=== PATIENT | female | born 1960 | race African-American/Black ===

== ENCOUNTER → 2017-07-21 | Outpatient (CLI) | payer OTHER ==
[2014-04-06 14:41] VITALS: BP 177/80
--- NOTE | 2017-07-21 16:02 | CARD ---
APPROVED REPORT EXAM: Two-dimensional and M-mode echocardiogram with Doppler and color Doppler. Other Information HR: 64bpm INDICATION Cardiomyopathy RISK FACTORS Hypertension 2D DIMENSIONS RVDd2.9 (2.9-3.5cm)Left Atrium(2D)4.0 (1.6-4.0cm) IVSd1.4 (0.7-1.1cm)Aortic Root(2D)2.7 (2.0-3.7cm) LVDd3.8 (3.9-5.9cm)LVOT Diameter2.0 (1.8-2.4cm) PWd1.2 (0.7-1.1cm)LVDs2.2 (2.5-4.0cm) FS (%) 41.5 %SV45.7 ml LVEF(%)60.0 (>50%) Aortic Valve AoV Peak Trev.160.6cm/sAoV VTI39.5cm AO Peak GR.10.3mmHgLVOT Peak Trev.105.6cm/s AO Mean GR.6mmHgAVA (VMAX)1.56cm2 Mitral Valve MV E Ekvqnwpl55.2cm/sMV DECEL [id number] MV A Xoawrtqx53.4cm/sMV [id number] E/A Ratio0.9MVA (PHT)3.85cm2 TDI E/Lateral E'8.9E/Medial E'10.7 Tricuspid Valve TR P. Xtmvlbnm492nr/sTR Peak Gr.48mmHg Pulmonary Vein S1 Uxejfbwq40.1cm/sD2 Iuwxlceo50.4cm/s LEFT VENTRICLE The left ventricle is normal size. There is mild concentric left ventricular hypertrophy. The left ve ntricular systolic function is normal and the ejection fraction is within normal range. LV EF 60% The re is normal LV segmental wall motion. Transmitral Doppler flow pattern is Grade I-abnormal relaxatio n pattern. RIGHT VENTRICLE The right ventricle is normal size. The right ventricular systolic function is normal. ATRIA The left atrium size is normal. There is a catheter/pacemaker lead seen in the right atrium. The inte ratrial septum is intact with no evidence for an atrial septal defect or patent foramen ovale as note d on 2-D or Doppler imaging. AORTIC VALVE The aortic valve is normal in structure and function. Doppler and Color Flow revealed no significant aortic regurgitation. There is no significant aortic valvular stenosis. There is no aortic valvular v egetation. MITRAL VALVE The mitral valve is normal in structure and function. There is no evidence of mitral valve prolapse. There is no mitral valve stenosis. Doppler and Color Flow revealed no mitral valve regurgitation note d. TRICUSPID VALVE The tricuspid valve leaflets are thickened or calcified, but open well. Doppler and Color Flow reveal ed mild tricuspid regurgitation. PULMONIC VALVE The pulmonary valve is normal in structure Doppler and Color Flow revealed mild pulmonic valvular reg urgitation. GREAT VESSELS The aortic root is normal in size. The IVC is normal in size and collapses >50% with inspiration. PERICARDIAL EFFUSION There is no pleural effusion. There is no evidence of significant pericardial effusion. Critical Notification Critical Value: No <Conclusion> The left ventricular systolic function is normal and the ejection fraction is within normal range. LV EF 60% Transmitral Doppler flow pattern is Grade I-abnormal relaxation pattern. There is mild concentric left ventricular hypertrophy. The left atrium size is normal. There is a catheter/pacemaker lead seen in the right atrium. The aortic valve is normal in structure and function. The mitral valve is normal in structure and function. Doppler and Color Flow revealed mild tricuspid regurgitation. Doppler and Color Flow revealed mild pulmonic valvular regurgitation. There is no evidence of significant pericardial effusion.
== END | disposition home or self-care (01) ==
LOC: ECHO 07:08
PROVIDERS: ATTEND Internal Medicine Cardiovascular Disease
DX: I42.9 Cardiomyopathy, unspecified (principal); I10 Essential (primary) hypertension; I51.7 Cardiomegaly
CPT/HCPCS: 93306